=== PATIENT | female | born 1960 | race Caucasian/White ===

== ENCOUNTER 2020-03-24 15:10 | Outpatient (CLI) | payer OTHER, BC ==
--- NOTE | 2020-04-03 13:28 | MMO ---
Bilateral MAMMO Bilat Screen [facility]. CLINICAL HISTORY: Patient is 60 years old and is seen for screening. The patient has the following family history of breast cancer: mother, at age 60, malignant (generic). The patient has no personal history of cancer. The patient has a history of left Excisional Biopsy - benign. VIEWS: The views performed were: bilateral craniocaudal with tomosynthesis and bilateral mediolateral oblique with tomosynthesis. FILMS COMPARED: The present examination has been compared to prior imaging studies performed at [facility] on 03/17/2012 and 09/09/2013. This study has been interpreted with the assistance of computer-aided detection. MAMMOGRAM FINDINGS: There are scattered fibroglandular densities. Nodularity is stable. There are no suspicious masses, suspicious calcifications, or new areas of architectural distortion. IMPRESSION: THERE IS NO MAMMOGRAPHIC EVIDENCE OF MALIGNANCY. A ROUTINE FOLLOW-UP MAMMOGRAM IN 1 YEAR IS RECOMMENDED. THE RESULTS OF THIS EXAM WERE SENT TO THE PATIENT. ACR BI-RADS Category 2 - Benign finding MAMMOGRAPHY NOTE: 1. A negative mammogram report should not delay a biopsy if a dominant of clinically suspicious mass is present. 2. Approximately 10% to 15% of breast cancers are not detected by mammography. 3. Adenosis and dense breasts may obscure an underlying neoplasm. Reported by: ASIA PALOMINO MD Electonically Signed: [id number]
== END 2020-03-24 15:11 | disposition home or self-care (01) ==
LOC: BICMAMMO 15:10
PROVIDERS: ATTEND Family Medicine
DX: Z12.31 Encounter for screening mammogram for malignant neoplasm of breast (principal); Z91.89 Other specified personal risk factors, not elsewhere classified; Z80.3 Family history of malignant neoplasm of breast
CPT/HCPCS: 77063; 77067

== ENCOUNTER 2021-06-29 00:40 | Observation (INO) | payer OTHER, BC ==
[2021-06-29 04:10] VITALS: BMI 26.9
[2021-06-29] MEDS ORDERED: HYDROcodone/Acetaminophen 5/325 mg Tablet PO PRN (06:57)
[2021-06-29] MEDS ORDERED: Ondansetron PF 4 MG/2 ML Vial IVP PRN (06:57)
[2021-06-29] MEDS ORDERED: Guaifenesin DM 100-10/5 ML UDCUP PO PRN (06:57)
[2021-06-29] MEDS ORDERED: Senokot S 8.6-50 MG TAB PO PRN (06:57)
[2021-06-29 07:11] LABS: #Basophils 0.1 thou/uL (0.0-0.2); #Eosinphils 0.1 thou/uL (0.0-0.7); #Lymphocytes 3.6 thou/uL (1.20-3.40); #Monocytes 0.7 thou/uL (0.11-0.59); #Neutrophils 7.2 thou/uL (1.40-6.50); %Basophils 0.5 % (0.0-1.0); %Eosinophils 0.7 % (0.0-10.0); %Lymphocytes 30.4 % (21.0-51.0); %Monocytes 6.4 % (0.0-10.0); Mean Corpuscular HGB CONC 33.4 g/dL (32.0-36.0); Mean Corpuscular Hemoglobin 30.7 pg (27.0-31.0); Mean Platelet Volume 8.6 fL (7.4-10.4); Platelet Count 206 thou/uL (130-400); RBC Distribution Width 12.2 % (11.5-14.5); Red Blood Cell (RBC) Count 3.57 mill/uL (4.20-5.40); White Blood Cell (WBC) Count 11.7 thou/uL (4.8-10.8)
[2021-06-29 07:29] LABS: Anion Gap 8 mmol/L (10-20); BUN (Urea Nitrogen) 14 mg/dL (9.8-20.1); Calc. Creatinine Clearance 136 mL/min (70-130); Calcium 7.7 mg/dL (7.8-10.44); Carbon Dioxide 28 mmol/L (22-29); Chloride 108 mmol/L (98-107); Glucose 97 mg/dL (70-105); Magnesium 2.2 mg/dL (1.6-2.6); Potassium 3.2 mmol/L (3.5-5.1); Sodium 141 mmol/L (136-145)
[2021-06-29] MEDS ORDERED: Levothyroxine Sodium 112 MCG TAB PO SCH (07:45)
[2021-06-29] MEDS: Sodium Chloride 0.9% 1,000 ML IV SCH ×2 (08:39→20:16)
[2021-06-29] MEDS: Famotidine/PF 20 mg/2ml Vial SLOW IVP SCH ×2 (08:51→20:18)
[2021-06-29] MEDS: Enoxaparin Sodium 40 MG/0.4 ML SYRINGE SC SCH (08:52)
[2021-06-29] MEDS ORDERED: FLU VACC QS2021-22(6MOS UP)/PF 60 MCG/0.5 ML SYRINGE IM ONE (09:00)
[2021-06-29] MEDS: medroxyPROGESTERone Acetate 2.5 MG TAB PO SCH (09:01)
[2021-06-29] MEDS: Acetaminophen 325 MG TAB PO PRN (13:01)
[2021-06-29 15:30] LABS: Bacteria/HPF 4+ HPF (None Seen); Bilirubin Negative (Negative); Blood, Urine Trace (Negative); Glucose, Urine (Dipstick) Normal (Negative); Ketone, Urine Trace mg/dL (Negative); Leukocyte 25 Leu/uL (Negative); Nitrite Negative (Negative); Protein, Urine (Dipstick) 50 mg/dL (Neg-Trace); RBC/HPF 0-3 HPF (0-3); Specific Gravity, Urine 1.045 (1.002-1.036); Squamous Epithelial 0-3 HPF (0-3); Urobilinogen Normal mg/dL (Less than 2)
[2021-06-29] MEDS ORDERED: ERENUMAB AOOE 140 MG/ML IM SCH (15:30)
[2021-06-29] MEDS ORDERED: AUTO INJCT IM SCH (15:30)
[2021-06-29 15:32] LABS: Clarity Turbid (Clear)
[2021-06-29 15:33] LABS: Urine Culture Reflex Yes Yes
[2021-06-29] MEDS ORDERED: Zolpidem Tartrate 5 MG TAB PO PRN (16:15)
[2021-06-30] MEDS: Acetaminophen 325 MG TAB PO PRN (05:27)
[2021-06-30] MEDS ORDERED: Levothyroxine Sodium 112 MCG TAB PO SCH (06:00)
[2021-06-30 06:06] LABS: #Basophils 0.1 thou/uL (0.0-0.2); #Eosinphils 0.1 thou/uL (0.0-0.7); #Lymphocytes 3.4 thou/uL (1.20-3.40); #Monocytes 0.5 thou/uL (0.11-0.59); #Neutrophils 4.2 thou/uL (1.40-6.50); %Basophils 0.8 % (0.0-1.0); %Eosinophils 1.3 % (0.0-10.0); %Lymphocytes 40.9 % (21.0-51.0); %Monocytes 6.5 % (0.0-10.0); %Neutrophils 50.5 % (42.0-75.0); Mean Corpuscular HGB CONC 33.9 g/dL (32.0-36.0); Mean Corpuscular Hemoglobin 31.6 pg (27.0-31.0); Mean Corpuscular Volume 93.2 fL (78.0-98.0); Mean Platelet Volume 8.9 fL (7.4-10.4); Platelet Count 160 thou/uL (130-400); RBC Distribution Width 12.2 % (11.5-14.5); Red Blood Cell (RBC) Count 3.49 mill/uL (4.20-5.40); White Blood Cell (WBC) Count 8.2 thou/uL (4.8-10.8)
[2021-06-30 06:28] LABS: Anion Gap 9 mmol/L (10-20); BUN (Urea Nitrogen) 9 mg/dL (9.8-20.1); Calc. Creatinine Clearance 125 mL/min (70-130); Calcium 8.8 mg/dL (7.8-10.44); Carbon Dioxide 27 mmol/L (22-29); Chloride 108 mmol/L (98-107); Glucose 96 mg/dL (70-105); Potassium 3.1 mmol/L (3.5-5.1); Sodium 141 mmol/L (136-145)
[2021-06-30] MEDS: Famotidine/PF 20 mg/2ml Vial SLOW IVP SCH (08:28)
[2021-06-30] MEDS: medroxyPROGESTERone Acetate 2.5 MG TAB PO SCH (08:28)
[2021-06-30] MEDS: Enoxaparin Sodium 40 MG/0.4 ML SYRINGE SC SCH (08:28)
[2021-06-30] MEDS ORDERED: Potassium Chloride 20 MEQ TAB PO SCH ×2 (08:30→09:00)
[2021-06-30] MEDS ORDERED: Estradiol 1 MG TAB PO SCH (09:00)
[2021-06-30] MEDS ORDERED: Furosemide 20 MG TAB PO SCH (09:00)
[2021-06-30] MEDS ORDERED: [UNRECOGNIZED DRUG - OTHER] PO SCH (09:00)
[2021-06-30 09:50] VITALS: BP 110/68; TEMP 97.7
[2021-06-30] MEDS: Sodium Chloride 0.9% 1,000 ML IV SCH (10:08)
[2021-06-30] MEDS: Potassium Chloride 20 MEQ in Premix Bag 1 BAG IVPB SCH ×3 (10:08→12:38)
== END 2021-06-30 13:50 | disposition home or self-care (01) ==
LOC: T4-B 03:33
PROVIDERS: ADMIT Internal Medicine; ATTEND Internal Medicine
DX: K59.00 Constipation, unspecified (principal); E87.6 Hypokalemia; I10 Essential (primary) hypertension; E03.9 Hypothyroidism, unspecified; Z79.899 Other long term (current) drug therapy; Z88.0 Allergy status to penicillin; Z88.1 Allergy status to other antibiotic agents; Z88.7 Allergy status to serum and vaccine
CPT/HCPCS: 36415; 80048; 81001; 83735; 85025; 87077; 87086; 87186; 96365; 96375; 96376; G0378; J1956; J3480; J7050; S0028

== ENCOUNTER 2021-12-07 10:15 | Outpatient (CLI) | payer BC | END 2021-12-07 10:16 | disposition home or self-care (01) | LOC: BICMAMMO 10:15 | PROVIDERS: ATTEND Family Medicine | DX: Z12.31 Encounter for screening mammogram for malignant neoplasm of breast (principal); Z91.89 Other specified personal risk factors, not elsewhere classified; Z80.3 Family history of malignant neoplasm of breast | CPT/HCPCS: 77063; 77067 ==

== ENCOUNTER 2022-05-02 13:24 | Outpatient (CLI) | payer BC | END 2022-05-02 13:25 | disposition home or self-care (01) | LOC: SCSMRI 13:24 | PROVIDERS: ATTEND Family Medicine | DX: M51.16 Intervertebral disc disorders with radiculopathy, lumbar region (principal); M48.061 Spinal stenosis, lumbar region without neurogenic claudication; M51.17 Intervertebral disc disorders with radiculopathy, lumbosacral region | CPT/HCPCS: 72148 ==

== ENCOUNTER 2022-07-24 11:41 | Outpatient (CLI) | payer BC ==
[2022-07-24 13:35] LABS: Hemoglobin 12.1 g/dL (12.0-15.5); Mean Corpuscular HGB CONC 33.5 g/dL (32.0-36.0); Mean Corpuscular Hemoglobin 30.1 pg (27.0-33.0); Mean Corpuscular Volume 89.8 fl (81.6-98.3); Mean Platelet Volume 11.1 fl (7.4-10.4); Platelet Count 224 10x3/uL (150-450); RBC Distribution Width 12.3 % (11.5-14.5); Red Blood Cell (RBC) Count 4.02 10x6/uL (3.90-5.03); White Blood Cell (WBC) Count 5.9 10x3/uL (3.5-10.5)
[2022-07-24 13:47] LABS: Anion Gap 15 mmol/L (10-20); BUN (Urea Nitrogen) 14 mg/dL (9.8-20.1); Calc. Creatinine Clearance 0 mL/min (70-130); Calcium 9.1 mg/dL (7.8-10.44); Carbon Dioxide 27 mmol/L (23-31); Chloride 103 mmol/L (98-107); Estimated GFR 89; Glucose 89 mg/dL (80-115); Potassium 3.9 mmol/L (3.5-5.1); Sodium 141 mmol/L (136-145)
== END 2022-07-24 11:42 | disposition home or self-care (01) ==
LOC: LABBT 11:41
PROVIDERS: ATTEND Neurological Surgery
DX: Z01.812 Encounter for preprocedural laboratory examination (principal)
CPT/HCPCS: 80048; 85027; 93005; 93010

== ENCOUNTER 2022-07-29 06:58 | Day surgery (SDC) | payer BC ==
[2022-07-26 13:19] VITALS: BMI 26.1
[2022-07-29] MEDS ORDERED: Levofloxacin 500 mg/D5W 100 ml Premix Bag ONE (07:42)
[2022-07-29 08:16] LABS: Prothrombin Time 13.3 sec (12.0-14.7)
[2022-07-29 08:17] LABS: PTT 33.2 sec (22.9-36.1)
[2022-07-29] MEDS ORDERED: Vancomycin 1 GM VIAL ONE (08:53)
[2022-07-29] MEDS ORDERED: Clindamycin/D5W 900 mg/50 ml Premix Bag ONE (08:59)
[2022-07-29] MEDS ORDERED: fentaNYL PF 100 MCG/2 ML SYRINGE ONE (08:59)
[2022-07-29] MEDS ORDERED: Midazolam HCl 2 mg/2 ml Vial ONE (09:03)
[2022-07-29] MEDS ORDERED: Rocuronium Bromide 10 MG/ML (10ML VIAL) ONE (09:07)
[2022-07-29] MEDS ORDERED: PHENYLEPHRINE-NS 100 MCG/ML 10 ML SYRINGE ONE ×2 (09:07→10:11)
[2022-07-29] MEDS ORDERED: Dexamethasone 20 MG/5 ML VIAL ONE (09:07)
[2022-07-29] MEDS ORDERED: Ketorolac Tromethamine 30 MG/ML VIAL ONE (09:07)
[2022-07-29] MEDS ORDERED: Ondansetron PF 4 MG/2 ML Vial ONE (09:07)
[2022-07-29] MEDS ORDERED: PROPOFOL 200 MG/20 ML VIAL ONE (09:07)
[2022-07-29] MEDS ORDERED: SUGAMMADEX SODIUM 200 MG/2 ML VIAL ONE (09:59)
[2022-07-29] MEDS ORDERED: Fentanyl 100 MCG/2 ML VIAL ONE ×2 (10:39→11:07)
[2022-07-29] MEDS ORDERED: Morphine 2 MG/ML VIAL ONE (12:22)
[2022-07-29] MEDS ORDERED: HYDROcodone/Acetaminophen 5/325 mg Tablet ONE (12:53)
== END 2022-07-29 13:58 | disposition home or self-care (01) ==
LOC: SDC 06:58
PROVIDERS: ATTEND Neurological Surgery
PROC: 0SG0071 Fusion of Lumbar Vertebral Joint with Autologous Tissue Substitute, Posterior Approach, Posterior Column, Open Approach (ICD-10-PCS; principal; 2022-07-29)
DX: M48.062 Spinal stenosis, lumbar region with neurogenic claudication (principal); M43.16 Spondylolisthesis, lumbar region; G43.909 Migraine, unspecified, not intractable, without status migrainosus; E03.9 Hypothyroidism, unspecified; Z79.890 Hormone replacement therapy; Z79.899 Other long term (current) drug therapy; Z88.0 Allergy status to penicillin; Z88.1 Allergy status to other antibiotic agents; Z88.7 Allergy status to serum and vaccine
CPT/HCPCS: 85610; 85730; C1713; C1768; C1776; J1100; J1885; J1956; J2250; J2272; J2405; J2704; J3010; J3370; J3490

== ENCOUNTER 2022-08-13 08:43 | Outpatient (CLI) | payer BC | END 2022-08-13 08:44 | disposition home or self-care (01) | LOC: TBSIIMAG 08:43 | PROVIDERS: ATTEND Neurological Surgery | DX: M48.062 Spinal stenosis, lumbar region with neurogenic claudication (principal); M47.816 Spondylosis without myelopathy or radiculopathy, lumbar region; Z98.890 Other specified postprocedural states | CPT/HCPCS: 72100 ==

== ENCOUNTER 2022-10-30 13:59 | Outpatient (CLI) | payer BC | END 2022-10-30 14:00 | disposition home or self-care (01) | LOC: TBSIIMAG 13:59 | PROVIDERS: ATTEND Neurological Surgery | DX: M43.16 Spondylolisthesis, lumbar region (principal); M48.062 Spinal stenosis, lumbar region with neurogenic claudication; M47.816 Spondylosis without myelopathy or radiculopathy, lumbar region; Z98.890 Other specified postprocedural states | CPT/HCPCS: 72100 ==

== ENCOUNTER 2023-04-16 14:54 | Outpatient (CLI) | payer BC | END 2023-04-16 14:55 | disposition home or self-care (01) | LOC: BICMAMMO 14:54 | PROVIDERS: ATTEND Family Medicine | DX: N63.10 Unspecified lump in the right breast, unspecified quadrant (principal) | CPT/HCPCS: G0279 ==